=== PATIENT | female | born 1940 | race Caucasian/White ===

== ENCOUNTER 2025-10-04 09:38 | Emergency (ER) | payer MEDICARE, OTHER, SELFPAY ==
[2025-10-04 10:04] VITALS: BP 183/78; PULSE 70; RESP 16; TEMP 36.6; O2SAT 97; BMI 19.2
--- NOTE | 2025-10-04 10:11 | EKG_ITS ---
[address] [address] Test Date: 2025-10-04 Pat Name: Ale Dobbs Department: Room: Gender: Female Speech Therapist: GLORIA : 1940 Requested By: Order Number: [id number] Reading MD: Dominik Esparza Measurements Intervals [place] Rate: 81 P: 71 SC: 174 QRS: 37 QRSD: 58 T: 45 QT: 392 QTc: 455 Interpretive Statements Sinus rhythm with premature supraventricular complexes and with occasional and consecutive premature ventricular complexes Electronically Signed On 10-04-2025 15:01:20 PST by Dominik Esparza
--- NOTE | 2025-10-04 10:11 | DI.RAD.S_ITS ---
PROCEDURE: XR CHEST 1V INDICATIONS: Shortness of breath TECHNIQUE: One view of the chest was acquired. COMPARISON: None. FINDINGS: Surgical changes and devices: None. Lungs and pleura: Lungs are clear. No pleural effusions or pneumothorax. Mediastinum: Mildly tortuous thoracic aorta. Heart size is enlarged. Bones and chest wall: No suspicious bony lesions. Overlying soft tissues appear unremarkable. IMPRESSION: No acute cardiopulmonary pathology. Dictated by: Mukund Oviedo M.D. on 10/04/2025 at 10:54 Approved by: Mukund Oviedo M.D. on 10/04/2025 at 10:57
--- NOTE | 2025-10-04 11:28 | DI.CT.S_ITS ---
PROCEDURE: CT ANGIO CHEST PE PROTOCOL INDICATIONS: sob, large L breast mass? ? cancer/PE? TECHNIQUE: After the administration of intravenous contrast, 2 mm thick sections acquired from the pulmonary apices to the posterior costophrenic angles. 3-dimensional maximum intensity projection (MIP) coronal and sagittal reformats were then acquired through the thorax. For radiation dose reduction, the following was used: automated exposure control, adjustment of mA and/or kV according to patient size. COMPARISON: None. FINDINGS: Image quality: Diagnostic. Pulmonary arteries: Pulmonary arteries are normal in size, and demonstrate no intraluminal filling defects to suggest central pulmonary embolism. Lower Neck: No enlarged lymph nodes. Thyroid: No thyroid nodules which require sonographic follow up, per consensus guidelines. Axillae: No enlarged lymph nodes. Chest Wall: Bilateral breast implants. Heterogeneous attenuation of the left breast implant. Bones: Unremarkable. Lungs and Pleura: No pneumothorax or pleural effusions. A few solid pulmonary micro nodules. Index nodule measures 2 millimeter in the left lower lobe (series 6, image 198) . Heart: Heart size is normal. No pericardial effusion. Thoracic Vessels: No aortic aneurysm. Mediastinum and Mary: No enlarged lymph nodes. Esophagus: No wall thickening. No hiatal hernia. Upper Abdomen: Visualized upper abdomen solid organs and bowel loops appear normal. IMPRESSION: No pulmonary embolus. No acute cardiopulmonary process. Bilateral breast implants. Heterogeneous attenuation of the left breast implant, presumably internal rupture. Pulmonary micronodules. Consider 12 month follow-up if at high risk for developing lung cancer, per Fleischner Society guidelines. Dictated by: Romel Moser M.D. on 10/04/2025 at 11:56 Approved by: Romel Moser M.D. on 10/04/2025 at 11:58
[2025-10-04 11:32] LABS: Add Manual Diff / Slide Review NO; Hematocrit 38.2 % (36-46); Hemoglobin 13.0 g/dL (12.0-16.0); Lymphocytes Absolute Auto 2200 /uL (1100-4500); Mean Corpuscular HGB Conc 33.9 % (30-36); Mean Corpuscular Hemoglobin 31.2 PG (26-34); Mean Corpuscular Volume 92.1 fL (80-100); Platelet Count 270 X10^3/uL (150-400)
[2025-10-04 11:42] VITALS: PULSE 64; RESP 11; O2SAT 100
[2025-10-04 11:45] LABS: INR 0.9 (0.9-1.3); Prothrombin Time 10.6 SECONDS (9.4-12.5)
[2025-10-04 11:49] LABS: Alanine Aminotransferase 23 IU/L (<35); Albumin 4.4 g/dL (3.5-5.0); Albumin Globulin Ratio 1.5 (1.0-2.8); Alkaline Phosphatase 86 U/L (38-126); Blood Urea Nitrogen 19 mg/dL (7-17); Calcium 9.6 mg/dL (8.4-10.2); Carbon Dioxide 29 mmol/L (22-32); Chloride 107 mmol/L (98-107); Estimated Glomerular Filt Rate > 60 mL/min (>60); Globulin 3.0 g/dL (1.7-4.1); Glucose 105 mg/dL (70-99); HEMOLYSIS 17 (0-50); Potassium 4.1 mmol/L (3.4-5.1); Sodium 142 mmol/L (137-145); Total Protein 7.4 g/dL (6.3-8.2)
[2025-10-04 11:50] LABS: Lactate (Lactic Acid) 1.0 mmol/L (0.7-2.1)
[2025-10-04 12:00] VITALS: PULSE 72; RESP 20; O2SAT 100
[2025-10-04 12:01] LABS: NT-proBNP (BNP-Adult 18+) 674 pg/mL (<450); Troponin I < 0.012 ng/mL (0.01-0.034)
--- NOTE | 2025-10-04 12:03 | ED_ITS ---
HPI - SOB/Dyspnea General Chief Complaint: Shortness of Breath/Dyspnea Stated Complaint: dr pike, high b/p, difficulty breathing, hx stroke Time Seen by Provider: 10/04/25 10:25 Source: patient Limitations: no limitations History of Present Illness HPI Narrative: 84-year-old female history of hypertension, dyslipidemia, prior stroke with mild aphasia on aspirin 81 mg, hypothyroidism who presents with a complaint of a sensation of little bit of shortness of breath. Patient's has been states it has been going on for a long time patient states new. She states she is normally quite active. She states it seems to be little bit worse when she lays flat. No fevers or chills. Denies a cough cold or congestion symptoms. Denies any chest pain or pressure. Patient has not had any nausea or vomiting she does note she has got has a mass on her left breast they have plans to follow up with surgery to have it removed but are waiting for it to be scheduled. Patient has not had any new GI or urinary symptoms. No new swelling of extremities. She has not had any warmth erythema or other skin changes to her chest. Patient states prior surgery was an appendectomy. Denies tobacco, occasional alcohol, no recreational drugs. She is accompanied by her . Dr. Solis is her primary care physician. Related Data Allergies Allergy/AdvReac Type Severity Reaction Status Date / Time No Known Drug Allergies Allergy Verified 10/04/25 10:03 Review of Systems Review of Systems ROS Unobtainable: All systems reviewed & are unremarkable except as noted in HPI and below Exam Narrative Exam Narrative: GEN: well nourished, well appearing female, alert and oriented x 3, patient has some mild difficulty with speech has been helping with some of the history, patient appears to be in mild distress. HEENT: Atraumatic, pupils are equal round reactive to light, extraocular movements are intact, nares are clear, there is no conjunctival pallor. Throat is clear without any exudates, erythema, tonsillar enlargement or uvular deviation HEART: Regular rate and rhythm without murmur, clicks, rubs. Pulses are equal in upper and lower extremities. On exam patient's left breast patient has very hard mass underneath the breast appears larger in comparison to the right is firm, nontender no warmth no erythema. LUNGS:Lungs clear to auscultation, no wheezes, rales, crackles, chest moves symmetrically ABD:bowel sounds normal, soft, non-tender, no guarding, rebound, rigidity, no masses noted, no hepatosplenomegaly :No CVA tenderness MSCL: Non-tender, no muscle atrophy, muscles strength 5/5 upper and lower extremities, full range of motion, normal gait NEURO:CN 2-12 intact, sensation normal Initial Vital Signs Initial Vital Signs: Vital Signs Temperature 97.8 F 10/04/25 10:04 Pulse Rate 70 10/04/25 10:04 Respiratory Rate 16 10/04/25 10:04 Blood Pressure 183/78 H 10/04/25 10:04 Pulse Oximetry 97 10/04/25 10:04 Oxygen Delivery Method Room Air 10/04/25 10:04 Course Orders Ordered: ED Orders 10/04/25 10:11 XR chest 1V Stat EKG-12 Lead Stat Measure peak expiratory flow STAT RT Consult Eval and Treat STAT 10/04/25 11:20 Complete Blood Count AUTO DIFF Stat Comprehensive Metabolic Panel Stat Lactate (Lactic Acid) Stat NT-proBNP (BNP-Adult 18+) Stat Prothrombin Time INR Stat Troponin I Stat 10/04/25 11:28 CT angio chest PE protocol Stat 10/04/25 12:07 EKG-12 Lead Routine Discontinued Medications Lorazepam (Lorazepam 0.5 Mg Tablet) 1 mg PO NOW ONE Stop: 10/04/25 12:22 Vital Signs Vital signs: Vital Signs - 8 hr 10/04/25 11:42 10/04/25 12:00 Pulse Rate 64 72 Respiratory Rate 11 L 20 Pulse Oximetry 100 100 MDM - SOB/Dyspnea Lab Data 10/04/25 11:20 10/04/25 11:20 Labs: Lab Results 10/04/25 Range/Units 11:20 WBC 5.8 (4.5-11.0) X10^3/uL RBC 4.15 (4.0-5.2) X10^6/uL Hgb 13.0 (12.0-16.0) g/dL Hct 38.2 (36-46) % MCV 92.1 (80-100) fL MCH 31.2 (26-34) PG MCHC 33.9 (30-36) % RDW 14.5 (11.6-14.8) % Plt Count 270 (150-400) X10^3/uL Neut % (Auto) 52.9 (50-75) % Lymph % (Auto) 37.9 (25-40) % [place] % (Auto) 7.0 (3-14) % Eos % (Auto) 1.6 L (2-4) % Baso % (Auto) 0.6 (0-2) % Neut # (Auto) 3000 (1513-4225) /uL Lymph # (Auto) 2200 (2474-1335) /uL [place] # (Auto) 400 (0-900) /uL Eos # (Auto) 100 (0-450) /uL Baso # (Auto) 0 (0-100) /uL PT 10.6 (9.4-12.5) SECONDS INR 0.9 (0.9-1.3) Sodium 142 (137-145) mmol/L Potassium 4.1 (3.4-5.1) mmol/L Chloride 107 (98-107) mmol/L Carbon Dioxide 29 (22-32) mmol/L BUN 19 H (7-17) mg/dL Creatinine 0.80 (0.52-1.04) mg/dL Estimated GFR > 60 (>60) mL/min BUN/Creatinine Ratio 23.8 H (6-22) Glucose 105 H (70-99) mg/dL Lactate 1.0 (0.7-2.1) mmol/L Calcium 9.6 (8.4-10.2) mg/dL Total Bilirubin 0.6 (0.2-1.3) mg/dL AST 40 H (14-36) IU/L ALT 23 (<35) IU/L Alkaline Phosphatase 86 (38-126) U/L Troponin I < 0.012 (0.01-0.034) ng/mL NT-Pro-B Natriuret Pep 674 H (<450) pg/mL Total Protein 7.4 (6.3-8.2) g/dL Albumin 4.4 (3.5-5.0) g/dL Globulin 3.0 (1.7-4.1) g/dL Albumin/Globulin Ratio 1.5 (1.0-2.8) MDM Narrative Medical decision making narrative: No acute cardiopulmonary pathology. CTA chest no pulmonary embolism, no acute cardiopulmonary process, bilateral breast implants heterogeneous attenuation in the left breast implant presumably internal rupture. Pulmonary micro nodules consider 12 month follow up if high- risk for developing lung cancer per Fleischner society guidelines. Labs show normal white count, hemoglobin and platelets, INR 0.9, electrolytes are appropriate BUN 19 creatinine 0.8 glucose of 105 LFTs are appropriate lactate is 1, troponin less than 0.012 with a BNP of 674. Initial EKG showed sinus rhythm with a PVCs and rate 81 DE 174 QRS is 58 QTC 455, patient had quite a bit of what appears to be tremor artifact. EKG was repeated EKG shows sinus rhythm nonspecific ST change rate of 64 DE 140 QRS is 68 QTC of 427. Patient 84-year-old female presents with a complaint of shortness of breath and difficulty sleeping they note a growth on her breast she is scheduled to have removed. Patient is normally pretty active and busy she notes little bit worsening when lying flat. Patient does seem a little bit forgetful they both note she has had a prior stroke with some left ovary aphasia. Patient gets little bit frustrated with her at times during initial evaluation and during her stay her workup had returned patient has been open to trying some medication as she feels very anxious but then elected to leave did not get to review all of her findings with her or her . Discharge Plan Departure Patient Disposition: Left Against Medical Advice Clinical Impression: Shortness of breath Activity Restrictions/Additional Instructions: CT of your chest shows pulmonary micro nodules and noted on the left the breast implant has heterogeneous attenuation presumably has not internal rupture of the implant. Please follow up with your physician. Please return for new or worsening symptoms. Referrals: Audrey Solis DO [Primary Care Provider, Internal Medicine] Stand Alone Forms: Patient Portal/API, Against Med. Advice (French)
--- NOTE | 2025-10-04 12:07 | EKG_ITS ---
[address] [address] [address], [place] [address] Test Date: 2025-10-04 Pat Name: Ale Dobbs Department: Room: Gender: Female Environmental Professional: GLORIA : 1940 Requested By: Order Number: [id number] Reading MD: Dominik Esparza Measurements Intervals [place] Rate: 64 P: 22 UT: 140 QRS: 40 QRSD: 68 T: 47 QT: 414 QTc: 427 Interpretive Statements Normal sinus rhythm Nonspecific ST abnormality Electronically Signed On 10-04-2025 15:01:29 PST by Dominik Esparza
--- NOTE | 2025-10-04 12:09 | PC.NURSE ---
1200: Pt sitting on the side of the bed, shaking, having extreme anxiety wanting to leave saying I cant do this anymore, I want to leave. HR spiked, pt states she started having chest pain and numbness in R side of head. Pt moved to laying down in bed. Dr. Chanel notified, EKG in process
--- NOTE | 2025-10-04 12:21 | PC.NURSE ---
1215 Went in to patient room, pt is upset started to say she was in pain, that no one is helping her. She is ripping monitoring equipment off and states she is going home. Repeatedly shows her shaking hands and asks this food writer to look. This food writer cannot tell if pt is anxious or upset or another reason she is not able to get her words out. Pt states this also happened last night while she was sleeping. Dr. Chanel notified a second time of sx and is at bedside. After conversation with Dr. Chanel pt is sitting in chair and has agreed to stay for the moment.
--- NOTE | 2025-10-04 12:44 | PC.NURSE ---
1220: RN alerted to pt bleeding, pt had taken IV out. This check writer salesperson placed 2x2 and coban over site to stop bleeding. Pt is adamant about leaving, signed AMA form. Left with a independent steady gait.
== END 2025-10-04 11:20 | disposition left against medical advice (07) ==
PROVIDERS: Emergency Provider Emergency Medicine; PCP Student in an Organized Health Care Education/Training Program
DX: R06.02 Shortness of breath (principal); I49.3 Ventricular premature depolarization; I69.320 Aphasia following cerebral infarction; Z53.29 Procedure and treatment not carried out because of patient's decision for other reasons
CPT/HCPCS: 36415; 71045; 71275; 80053; 83605; 83880; 84484; 85025; 85610; 93005; 99283; 99284; Q9967